=== PATIENT | female | born 1945 | race Caucasian/White ===

== ENCOUNTER 2021-05-30 06:56 | Observation (INO) ==
[~2021-05-30 06:56] MED LIST: Buffered Lidocaine 1% SYRIN 1 ml INTRADERM ONE; Famotidine IV 10 MG/ML 2 ml VIAL (20 mg) IV ONE; Lactated Ringers 1000 ml BAG 1,000 ML IV SCH
[2021-05-30] MEDS ORDERED: ceFAZolin 2 GM in NS PREMIX 2 GM/100 ML BAG IVPB ONE (07:43)
[2021-05-30] MEDS ORDERED: Famotidine IV 10 MG/ML 2 ml VIAL (20 mg) ONE (07:44)
[2021-05-30] MEDS ORDERED: ROPIVACAINE 5 MG/ML 30 ML BTL (0.5%) ONE (09:35)
[2021-05-30] MEDS ORDERED: Rocuronium 50 mg VIAL 10 mg/ml 5 ml VIAL (50 mg) ONE (09:49)
[2021-05-30] MEDS ORDERED: Ketamine HCL 50 mg/ml 10 ml VIAL (500 MG) ONE (09:49)
[2021-05-30] MEDS ORDERED: Ondansetron 4 mg VIAL 2 MG/ML 2 ml VIAL ONE (09:49)
[2021-05-30] MEDS ORDERED: Propofol 10 MG/ML 20 ML BTL ONE (09:49)
[2021-05-30] MEDS ORDERED: Lidocaine 2% PF 5 ML VIAL ONE (09:49)
[2021-05-30] MEDS ORDERED: Midazolam 2 mg/2 ml VIAL 1 mg/ml 2 ml VIAL (2 mg) ONE (09:49)
[2021-05-30] MEDS ORDERED: fentaNYL 250 mcg/5 ml 50 MCG/ML 5 ml VIAL (250 MCG) ONE (09:49)
[2021-05-30] MEDS ORDERED: Dexamethasone IV 4 MG/ML VIAL 1 ml VIAL ONE (09:49)
[2021-05-30] MEDS ORDERED: HYDROmorphone 1 MG/1 ML SYRINGE ONE ×2 (11:01→13:42)
[2021-05-30] MEDS ORDERED: Acetaminophen IV 1 GM/100ML 100 ML IV ONE (11:09)
[2021-05-30] MEDS ORDERED: diPHENhydraMINE IV 50 MG/ML 1 ml VIAL (BENADRYL) IV PRN (11:15)
[2021-05-30] MEDS ORDERED: Magnesium Hydroxide LIQ 30 ML UDC PO PRN (11:15)
[2021-05-30] MEDS ORDERED: Ondansetron ODT 4 mg TAB 4 MG TAB PO PRN (11:15)
[2021-05-30] MEDS ORDERED: Ondansetron 4 mg VIAL 2 MG/ML 2 ml VIAL IV PRN ×2 (11:15→11:31)
[2021-05-30] MEDS ORDERED: diPHENhydraMINE 25 mg TAB PO PRN (11:15)
[2021-05-30] MEDS ORDERED: Lactulose 30 ml UDC PO PRN (11:15)
[2021-05-30] MEDS ORDERED: DiMENhydriNATE IV 50 mg/ml 1 ml VIAL IV PUSH PRN (11:31)
[2021-05-30] MEDS ORDERED: Naloxone 0.4 mg VIAL 0.4 mg/ml 1 ml VIAL IV PRN (11:31)
[2021-05-30] MEDS ORDERED: EPHEDrine (Pressors) 50 MG/ML VIAL ONE (11:56)
[2021-05-30] MEDS: HYDROmorphone 1 MG/1 ML SYRINGE IV PRN ×5 (13:42→14:32)
[2021-05-30] MEDS ORDERED: Dextrose 50% Syringe 50 ml 25 GM/50 ML SYRINGE IV PUSH PRN (14:23)
[2021-05-30] MEDS: Lactated Ringers 1000 ml BAG 1,000 ML IV SCH (15:17)
[2021-05-30] MEDS: Morphine 2 MG/ML SYRINGE IV PRN (17:22)
[2021-05-30] MEDS: ceFAZolin 1 GM ADVAN 1 GM in NS 0.9% 50 ML 50 ML IVPB SCH (18:04)
[2021-05-30] MEDS: Magnesium Hydroxide LIQ 30 ML UDC PO SCH (21:05)
[2021-05-30] MEDS: CMCS:Pravastatin 20 mg TAB (NF) PO SCH (21:10)
[2021-05-31] MEDS: Lactated Ringers 1000 ml BAG 1,000 ML IV SCH ×3 (01:39→22:07)
[2021-05-31] MEDS: ceFAZolin 1 GM ADVAN 1 GM in NS 0.9% 50 ML 50 ML IVPB SCH ×2 (02:38→10:54)
[2021-05-31 07:48] LABS: Calcium 8.2 mg/dL (8.6-10.3); Potassium 3.7 mmol/L (3.5-5.0)
[2021-05-31 07:54] LABS: EGFR African American 45.5 (>60); EGFR Non-African American 37.6 (>60)
[2021-05-31 07:56] LABS: Hematocrit 26 % (35-47); Hemoglobin 8.1 g/dL (12.0-16.0); Mean Platelet Volume 9.4 fL (7.4-10.4); Platelet Count 129 10^3/uL (150-450)
[2021-05-31] MEDS: Vitamin THERAPEUTIC TAB PO SCH (08:41)
[2021-05-31] MEDS: CMCS:SitaGLIPtin 100 mg TAB (NF) PO SCH (08:41)
[2021-05-31] MEDS: Magnesium Hydroxide LIQ 30 ML UDC PO SCH ×2 (08:42→20:11)
[2021-05-31] MEDS: Morphine 2 MG/ML SYRINGE IV PRN (08:46)
[2021-05-31] MEDS ORDERED: TRIAMTERENE HYDROCHLOROTHIAZID PO SCH (09:00)
[2021-05-31] MEDS: CMCS:Pravastatin 20 mg TAB (NF) PO SCH (22:05)
[2021-06-01 01:44] LABS: ABS Eosinophils 0.1 10^3/ul (0-0.6); ABS Lymphocytes 0.9 10^3/ul (1.0-4.8); ABS Monocytes 0.6 10^3/ul (0-0.8); ABS Neutrophils 5.7 10^3/ul (1.5-7.7); Eosinophil % 0.7 %; Hematocrit 23 % (35-47); Hemoglobin 7.7 g/dL (12.0-16.0); Lymphocyte % 12.8 %; Mean Corpuscular HGB Conc 33 g/dL (31-36); Mean Corpuscular Hemoglobin 28 pg (27-31); Mean Corpuscular Volume 84 fL (80-97); Mean Platelet Volume 9.4 fL (7.4-10.4); Platelet Count 137 10^3/uL (150-450); Red Blood Count 2.79 10^6 /uL (3.70-4.87); Red Cell Distribution Width 16 % (10-15); White Blood Count 7.3 10^3/uL (3.5-10.8)
[2021-06-01 02:00] LABS: Urine Appearance Clear; Urine Bilirubin Negative (Negative); Urine Blood Negative (Negative); Urine Color Yellow; Urine Glucose Negative (Negative); Urine Ketones Negative (Negative); Urine Nitrite Negative (Negative); Urine Protein Negative (Negative); Urine Urobilinogen Negative (Negative)
[2021-06-01 06:13] LABS: Hematocrit 23 % (35-47); Hemoglobin 7.7 g/dL (12.0-16.0); Mean Platelet Volume 9.2 fL (7.4-10.4); Platelet Count 128 10^3/uL (150-450)
[2021-06-01 09:03] LABS: Albumin 3.3 g/dL (3.2-5.2); Albumin/Globulin Ratio 1.4 (1-3); Calcium 7.8 mg/dL (8.6-10.3); EGFR African American 45.1 (>60); EGFR Non-African American 37.3 (>60); Globulin 2.4 g/dL (2-4); Potassium 3.7 mmol/L (3.5-5.0); Total Bilirubin 0.3 mg/dL (0.2-1.0); Total Protein 5.7 g/dL (6.4-8.9)
[2021-06-01] MEDS: Magnesium Hydroxide LIQ 30 ML UDC PO SCH (10:04)
[2021-06-01] MEDS: Vitamin THERAPEUTIC TAB PO SCH (10:05)
[2021-06-01] MEDS: CMCS:SitaGLIPtin 100 mg TAB (NF) PO SCH (10:05)
[2021-06-01] MEDS: Lactated Ringers 1000 ml BAG 1,000 ML IV SCH (10:09)
[2021-06-01 11:46] VITALS: BP 100/64
== END 2021-06-01 14:00 | disposition home or self-care (01) ==
LOC: OR 06:56 → SSU 06:56
PROVIDERS: ADMIT Orthopaedic Surgery Adult Reconstructive Orthopaedic Surgery; ATTEND Orthopaedic Surgery Adult Reconstructive Orthopaedic Surgery

== ENCOUNTER 2024-03-24 10:56 | Observation (INO) ==
[2024-03-24 15:49] LABS: Urine Appearance Clear; Urine Bilirubin Negative (Negative); Urine Blood Negative (Negative); Urine Color Light-Yellow; Urine Glucose Negative (Negative); Urine Ketones Trace (Negative); Urine Nitrite Negative (Negative); Urine Protein Negative (Negative); Urine Specific Gravity 1.014 (1.002-1.030); Urine Urobilinogen Negative (Negative); Urine pH 5.5 (5.0-8.0)
[2024-03-24 16:01] LABS: ABS Basophils 0.1 10^3/uL (0.0-0.1); ABS Eosinophils 0.1 10^3/uL (0.0-0.5); ABS Lymphocytes 0.7 10^3/uL (1.0-4.8); ABS Monocytes 0.6 10^3/uL (0.0-0.9); ABS Neutrophils 4.7 10^3/uL (1.5-7.6); Eosinophil % 1.1 %; Hematocrit 32.3 % (35-45); Hemoglobin 10.8 g/dL (11.5-14.3); Lymphocyte % 11.6 %; Mean Corpuscular Hemoglobin 28.7 pg (27-33); Mean Corpuscular Hgb Conc 33.5 g/dL (31-36); Mean Corpuscular Volume 85.8 fL (80-97); Mean Platelet Volume 8.5 fL (7.5-11.2); Platelet Count 305 10^3/uL (150-450); Red Blood Count 3.76 10^6/uL (3.63-4.92); Red Cell Distribution Width 14.2 % (12-17); White Blood Count 6.1 10^3/uL (3.8-11.8)
[2024-03-24] MEDS: Piperacillin/Tazobac 3.375 BAG 3.375 GM/100 ML BAG IV ONE (16:03)
[2024-03-24] MEDS: NS 0.9% 1000 ml BAG 1,000 ML IV ONE (16:03)
[2024-03-24 17:03] LABS: Albumin 3.8 g/dL (3.2-5.2); Albumin/Globulin Ratio 1.1 (1-3); Calcium 9.5 mg/dL (8.6-10.3); Creatinine, Serum 1.85 mg/dL (0.51-0.95); Globulin 3.5 g/dL (2-4); Potassium 4.3 mmol/L (3.5-5.0); Total Bilirubin 0.4 mg/dL (0.2-1.0); Total Protein 7.3 g/dL (6.4-8.9); eGFR CKD-EPI 27.6 (>60)
[2024-03-24] MEDS ORDERED: Zosyn per Pharmacy NOTE FOLLOW UP SCH (20:00)
[2024-03-24] MEDS: NS 0.9% 1000 ml BAG 1,000 ML IV SCH (20:50)
[2024-03-24] MEDS: ZOSYN 3.375 GM Q8H per EXTENDED INFUSION IV SCH (20:50)
[2024-03-24] MEDS ORDERED: Acetaminophen IV 1 GM/100ML 1,000 MG/100 ML BAG IV PRN (21:06)
[2024-03-24] MEDS ORDERED: Ondansetron 4 mg VIAL 2 MG/ML 2 ml VIAL IV PRN (21:06)
[2024-03-24 21:28] LABS: C Reactive Protein 85.08 mg/L (<8.01)
[2024-03-25] MEDS: ZOSYN 3.375 GM Q8H per EXTENDED INFUSION IV SCH (05:03)
[2024-03-25 06:37] LABS: ABS Eosinophils 0.1 10^3/uL (0.0-0.5); ABS Lymphocytes 0.7 10^3/uL (1.0-4.8); ABS Monocytes 0.7 10^3/uL (0.0-0.9); ABS Neutrophils 4.5 10^3/uL (1.5-7.6); Eosinophil % 1.5 %; Hematocrit 29.8 % (35-45); Lymphocyte % 10.9 %; Mean Corpuscular Hemoglobin 28.9 pg (27-33); Mean Corpuscular Hgb Conc 33.5 g/dL (31-36); Mean Corpuscular Volume 86.2 fL (80-97); Mean Platelet Volume 8.3 fL (7.5-11.2); Platelet Count 267 10^3/uL (150-450); Red Blood Count 3.46 10^6/uL (3.63-4.92); Red Cell Distribution Width 13.8 % (12-17)
[2024-03-25 06:57] LABS: Albumin 3.4 g/dL (3.2-5.2); Albumin/Globulin Ratio 1.1 (1-3); Calcium 8.5 mg/dL (8.6-10.3); Creatinine, Serum 1.79 mg/dL (0.51-0.95); Potassium 3.8 mmol/L (3.5-5.0); Total Bilirubin 0.4 mg/dL (0.2-1.0); Total Protein 6.4 g/dL (6.4-8.9); eGFR CKD-EPI 28.7 (>60)
[2024-03-25] MEDS ORDERED: Aspirin EC 81 mg TAB.EC (enteric coated) PO SCH (09:00)
[2024-03-25] MEDS: Fluticasone NASAL SPRAY 50MCG 16 gm SPRAY BTL INTRANASAL SCH (11:09)
[2024-03-25] MEDS: Enoxaparin 40 MG/0.4 ML SYR SUBCUT SCH (19:08)
[2024-03-25 20:30] LABS: Erythrocyte Sed Rate 47 mm/Hr (0-29)
[2024-03-25] MEDS: CMCS: Pravastatin 20 mg TAB (NF) PO SCH (22:32)
[2024-03-26 12:59] VITALS: BP 130/73
== END 2024-03-26 18:30 | disposition short-term general hospital (02) ==
LOC: EDHOLD 10:56 → ED 10:56 → SUATTDRO 18:12 → MED 03-25 02:25
PROVIDERS: ADMIT Internal Medicine; ATTEND Internal Medicine